=== PATIENT | male | born 1990 | race American Indian/Alaskan Native ===

== ENCOUNTER 2020-08-07 20:06 | Emergency (ER) | payer SELFPAY ==
--- NOTE | 2020-08-07 23:06 | Emergency Department Report ---
HPI - General Chief Complaint: Extremity Injury, Lower Time Seen by Provider: 08/07/20 22:49 - HPI HPI: Room 22 The patient is a 30-year-old male present with a chief complaint of right lower extremity pain. The patient states approximately mid June he was walking and fell striking his right knee. Patient states he had pain but did not immediately go to the hospital. Patient states he tried to elevated and ice his knee but he realized it did not help. The patient states he went to [facility] emergency department 07/14/2020 and had an x-ray performed which was negative. The patient states he continue to use a knee brace and attempted to rest and stay off of his leg or use crutches when necessary. The patient states for the past week he has had a dull pain in the entire right lower extremity but today after coming back home he felt as though his entire leg was on fire. Patient denies any direct trauma. The patient states he drove himself to the emergency department and he will hold off on pain medication at this time ED Past Medical Hx - Past Medical History Previous Medical History?: No - Surgical History Past Surgical History?: Yes Additional Surgical History: Benign testicular mass removal - Family History Family history: no significant - Social History Smoking Status: Current Some Day Smoker (Vape) Substance Use Type: None (Denies illicit drug use), Alcohol (Occasional) - Medications Home Medications: Home Medications Medication Instructions Recorded Confirmed Last Taken Type Cyclobenzaprine [Flexeril] 10 mg PO TID PRN #14 tablet 08/08/20 Unknown Rx HYDROcodone/APAP 5-325 [[place] 1 - 2 each PO Q6HR PRN #14 tablet 08/08/20 Unknown Rx 5/325] Ibuprofen [Motrin 800 MG tab] 800 mg PO Q8HR PRN #20 tablet 08/08/20 Unknown Rx ED Review of Systems ROS: Stated complaint: (R) KNEE PAIN/INJURY Other details as noted in HPI Constitutional: no symptoms reported Respiratory: no symptoms reported Endocrine: no symptoms reported Musculoskeletal: arthralgia, myalgia Physical Exam - Physical Exam Vital Signs: Vital Signs 08/07/20 20:35 Temperature 98.6 F Pulse Rate 82 Respiratory 18 Rate Blood Pressure 144/87 O2 Sat by Pulse 99 Oximetry Physical Exam: GENERAL: The patient is well-developed well-nourished male lying on stretcher not appearing to be in acute distress. [] HEENT: Normocephalic. Atraumatic. Extraocular motions are intact. Patient has moist mucous membranes. NECK: Supple. Trachea midline CHEST/LUNGS: There is no respiratory distress noted. HEART/CARDIOVASCULAR: Regular. There is no tachycardia. 2+ right DP SKIN: There is no rash. There is no edema. There is no diaphoresis. NEURO: The patient is awake, alert, and oriented. The patient is cooperative. The patient has no focal neurologic deficits. The patient has normal speech MUSCULOSKELETAL: There is tenderness to palpation in the right popliteal fossa. No cords felt. There is no evidence of acute injury. ED Course Vital Signs 08/07/20 20:35 Temperature 98.6 F Pulse Rate 82 Respiratory 18 Rate Blood Pressure 144/87 O2 Sat by Pulse 99 Oximetry ED Medical Decision Making - Radiology Data Radiology results: report reviewed (Right lower extremity Doppler), image reviewed (Right lower extremity Doppler) [facility] [address] [place] [address] Vascular Lab Report Signed Patient: KP GRIFFITH MR# : [id number] : 1990 Acct:[id number] Age/Sex: 30 / M ADM Date: 08/07/20 Loc: ED Attending Dr: Ordering Physician: SHERRILL IVEY MD Date of Service: 08/07/20 Procedure(s): VL venous duplex LE RT Accession Number(s): [id number] cc: SHERRILL IVEY MD DUPLEX DOPPLER LOWER EXTREMITY VEINS, RIGHT INDICATION / CLINICAL INFORMATION: Pain, swelling. TECHNIQUE: Duplex doppler imaging was performed through the veins of the right lower extremity using venous compression and other maneuvers. COMPARISON: None available. FINDINGS: RIGHT COMMON FEMORAL VEIN: Negative. RIGHT FEMORAL VEIN: Negative. RIGHT POPLITEAL VEIN: Negative. RIGHT CALF VEINS: Negative. ADDITIONAL FINDINGS: None. IMPRESSION: 1. No sonographic evidence for DVT in the right lower extremity. Signer Name: Santosh Apodaca MD Signed: 08/08/2020 12:23 AM Workstation Name: [id number] Transcribed By: TL Dictated By: Santosh Apodaca MD Electronically Authenticated By: Santosh Apodaca MD Signed Date/Time: 08/08/2022 DD/ TD/TT: - Differential Diagnosis Internal derangement of the knee, DVT Critical care attestation.: If time is entered above; I have spent that time in minutes in the direct care of this critically ill patient, excluding procedure time. ED Disposition Clinical Impression: Internal derangement of left knee Disposition: - TO HOME OR SELFCARE Is pt being admited?: No Does the pt Need Aspirin: No Condition: Stable Instructions: Anterior Cruciate Ligament Injury (ED), Posterior Cruciate Ligament Injury (ED), Knee Sprain (ED) Additional Instructions: Return to the emergency department should you develop worsening symptoms, inability to tolerate food or liquids, high fever or any other concerns Prescriptions: Cyclobenzaprine [Flexeril] 10 mg PO TID PRN #14 tablet PRN Reason: Muscle Spasm Ibuprofen [Motrin 800 MG tab] 800 mg PO Q8HR PRN #20 tablet PRN Reason: Pain, Moderate (4-6) HYDROcodone/APAP 5-325 [[place] 5/325] 1 - 2 each PO Q6HR PRN #14 tablet PRN Reason: Pain Referrals: BING LOU MD [Staff Physician] - 3-5 Days (Dr. Lou is an orthopedic surgeon. Please follow-up with him for further evaluation) Time of Disposition: 00:48
[2020-08-08] MEDS ORDERED: KETOROLAC 60 MG/2 ML INJ IM ONE (00:09)
[2020-08-08] MEDS ORDERED: KETOROLAC 60 MG/2 ML INJ ONE (00:11)
--- NOTE | 2020-08-08 00:27 | Vascular Lab Report ---
DUPLEX DOPPLER LOWER EXTREMITY VEINS, RIGHT INDICATION / CLINICAL INFORMATION: Pain, swelling. TECHNIQUE: Duplex doppler imaging was performed through the veins of the right lower extremity using venous comp ression and other maneuvers. COMPARISON: None available. FINDINGS: RIGHT COMMON FEMORAL VEIN: Negative. RIGHT FEMORAL VEIN: Negative. RIGHT POPLITEAL VEIN: Negative. RIGHT CALF VEINS: Negative. ADDITIONAL FINDINGS: None. IMPRESSION: 1. No sonographic evidence for DVT in the right lower extremity. Signer Name: Santosh Apodaca MD Signed: 08/08/2020 12:23 AM Workstation Name: [id number]
[2020-08-08 01:10] VITALS: BP 119/75
== END 2020-08-08 01:45 | disposition home or self-care (01) ==
LOC: ED 20:06
DX: M23.92 Unspecified internal derangement of left knee (principal); F17.200 Nicotine dependence, unspecified, uncomplicated; Z79.899 Other long term (current) drug therapy; Z98.890 Other specified postprocedural states
CPT/HCPCS: 93971; 96372; 99283; J1885

== ENCOUNTER 2021-09-08 09:27 | Day surgery (SDC) | payer OTHER ==
--- NOTE | 2021-09-06 10:59 | Anesthesia Consultation ---
Anesthesia Consult and Med Hx Date of service: 09/08/21 - Airway Anesthetic Teeth Evaluation: Good ROM Head & Neck: Adequate Mental/Hyoid Distance: Adequate Mallampati Class: Class III Intubation Access Assessment: Probably Good - Pre-Operative Health Status ASA Pre-Surgery Classification: ASA2 Proposed Anesthetic Plan: General Nerve Block: AC - Pulmonary Hx Smoking: Yes (STOPPED 2019 , NOW ONLY VAPS) Hx Sleep Apnea: No (TRINITY PRE SCREEN HIGH RISK) - Cardiovascular System Hx Hypertension: No Hx Heart Attack/AMI: No - Central Nervous System Hx Seizures: No Hx Back Pain: Yes Hx Psychiatric Problems: No - Gastrointestinal Hx Gastroesophageal Reflux Disease: No (Years ago; denies currently) - Endocrine Hx End Stage Renal Disease: No - Hematic Hx Anemia: No Hx Sickle Cell Disease: No - Other Systems Hx Alcohol Use: No Hx Substance Use: No Hx Cancer: No Hx Obesity: Yes (BMI 40.4 KG) - Additional Comments Anesthesia Medical History Comments: Increased platelets 442k. 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
[~2021-09-08 09:27] MED LIST: ACETAMINOPHEN 500 MG TAB PO NR; CELECOXIB 200 MG CAP PO NR; LACTATED RINGERS 1,000 ML IV SCH; MAGNESIUM OXIDE 400 MG TAB PO NR; MIDAZOLAM 2 MG/2 ML INJ IV NR; ceFAZolin/Water 2 GM/20 ML 2 GM/20 ML SYRINGE IV NR; fentaNYL 100 MCG/2 ML INJ IV NR
[2021-09-08] MEDS ORDERED: ONDANSETRON 4 MG/2 ML INJ IV PRN (11:04)
[2021-09-08] MEDS ORDERED: HYDROmorphone 1 MG/1 ML INJ IV PRN (11:04)
--- NOTE | 2021-09-08 11:04 | Anesthesia Day of Surgery ---
Anesthesia Day of Surgery - Day of Surgery Patient Examined: Yes Patient H&P Reviewed: Yes Patient is NPO: Yes
[2021-09-08] MEDS ORDERED: EPINEPHrine/PF 1 MG/1 ML INJ ONE (13:01)
[2021-09-08] MEDS ORDERED: BUPIVACAINE/PF (0.5%) 5 MG/1 ML 10 ML VIAL INFILTRATI ONE (13:02)
[2021-09-08] MEDS ORDERED: methylPREDNISolone ACETATE 40 MG/1 ML INJ ONE (13:02)
[2021-09-08] MEDS ORDERED: propofoL 200 MG/20 ML VIAL IV ONE (13:15)
[2021-09-08] MEDS ORDERED: fentaNYL 100 MCG/2 ML INJ ONE (13:15)
[2021-09-08] MEDS ORDERED: ROCURONIUM 50 MG/5 ML INJ IV ONE (13:15)
[2021-09-08] MEDS ORDERED: LIDOCAINE MPF (2%) 20 MG/1 ML VIAL 5 ML ONE (13:15)
[2021-09-08] MEDS ORDERED: KETAMINE/STERILE WATER 50 MG/ML SYRINGE ONE (13:15)
[2021-09-08] MEDS ORDERED: SODIUM CHLORIDE P/F VIAL 10 ML 10 ML ONE (13:33)
[2021-09-08] MEDS ORDERED: ONDANSETRON 4 MG/2 ML INJ ONE (14:01)
[2021-09-08] MEDS ORDERED: dexAMETHasone 20 MG/5 ML VIAL ONE (14:01)
[2021-09-08] MEDS ORDERED: EPINEPHrine 1 MG/10 ML SYRINGE IV ONE (14:35)
[2021-09-08] MEDS ORDERED: SODIUM CHLORIDE 0.9% IRR 1,500 ML BOTTLE IR ONE (14:36)
[2021-09-08] MEDS ORDERED: SODIUM CHLORIDE 0.9% P/F 10 ML VIAL INFILTRATI ONE (14:37)
[2021-09-08] MEDS ORDERED: HYDROmorphone 1 MG/1 ML INJ ONE (16:12)
[2021-09-08] MEDS ORDERED: LACTATED RINGERS 1,000 ML ONE (16:18)
[2021-09-08] MEDS ORDERED: NEOSTIGMINE 10MG/10 ML INJ MDV ONE (16:18)
[2021-09-08] MEDS ORDERED: GLYCOPYRROLATE 0.4 MG/2 ML INJ ONE ×2 (16:18)
[2021-09-08] MEDS ORDERED: KETOROLAC 30 MG/1 ML INJ ONE (16:19)
--- NOTE | 2021-09-08 16:35 | Procedure Note ---
Date of procedure: 09/08/21 Pre-op diagnosis: Right anterior cruciate ligament tear Post-op diagnosis: same Procedure: Right anterior cruciate ligament reconstruction using allograft tendon Procedure The patient was given a femoral nerve block for postop pain management and preoperative holding neck he was transferred to the operating room and placed on the OR table in the supine position following the induction and intubation by anesthesia the patient's right lower extremity was prepped and draped in the usual sterile manner. A timeout procedure was done to identify the patient and the correct operative site. The leg was exsanguinated followed by inflation of the pneumatic tourniquet to 300 mmHg next routine stab wounds were made about the patellar tendon and the arthroscope and inflow cannula were inserted into the knee joint this was followed by inspection which revealed a acute anterior cruciate ligament rupture from the femoral attachment next the anterior cruciate ligament stump was debrided using a combination of the arthroscopic shaver and the tissue ablator the anatomic footprint on the distal femur was seen and using a 10 mm tunnel guide the guidewire was inserted into the anatomic footprint and brought out laterally through the subcutaneous tissues and skin A passing suture was placed on the guidewire and brought out laterally following this attention was turned to the tibial attachment of the anterior cruciate ligament and using the anterior cruciate ligament guide with 55 degree angle, a second guidewire was inserted into the proximal tibia position was checked via arthroscope this was followed by our reaming a 10 mm diameter tunnel. The anterior tibial allograft was prepared on the table with whip stitching and tensioning. The anterior cruciate ligament graft was advanced through the tibial tunnel into the joint and through the femoral tunnel the button was secured to the lateral cortex of the femur this was followed by tensioning of the anterior cruciate ligament graft under direct visualization of the arthroscope the knee was then cycled using flexion and extension maneuvers this was followed by insertion of a 11 mm interference screw into the proximal tibia D and E was then taken to range of motion and was found to be stable to stress testing the pulling sutures were removed the excess allograft was cut at the margins of the proximal tibia this was followed by closure of the wound and application of our routine postop dressings by the patient tolerated the procedure there were no complications he was sent to postanesthesia recovery in a stable condition Anesthesia: MAC, regional Surgeon: BING ROA (Rosas Gomez, 1st assist) Estimated blood loss: minimal Pathology: none Condition: stable Disposition: PACU
[2021-09-08] MEDS: HYDROmorphone 1 MG/1 ML INJ IV PRN ×2 (16:50→17:00)
[2021-09-08] MEDS ORDERED: BUPIVACAINE/PF (0.25%) 2.5 MG/ML 30 ML VIAL INFILTRATI ONE (16:57)
[2021-09-08] MEDS ORDERED: dexAMETHasone 4 MG/ML VIAL ONE (16:57)
[2021-09-08] MEDS ORDERED: MIDAZOLAM 2 MG/2 ML INJ IV ONE (17:10)
--- NOTE | 2021-09-08 18:01 | Post Anesthesia Evaluation ---
- Post Anesthesia Evaluation Patient Participated: Yes Airway Patent: Yes Stable Respiratory Function: Yes Nausea/Vomiting: No Temp > 96.8F: Yes Pain Manageable: Yes Adequeate Hydration: Yes Anesthesia Complications: No Block Receding Appropriately: No (Done in PACU) Patient on Ventilator: No
[2021-09-08 21:27] VITALS: BP 120/64
== END 2021-09-08 20:00 | disposition home or self-care (01) ==
LOC: OR 09:27
PROVIDERS: ATTEND Orthopaedic Surgery
DX: S83.511A Sprain of anterior cruciate ligament of right knee, initial encounter (principal); Z20.822 Contact with and (suspected) exposure to COVID-19; G89.18 Other acute postprocedural pain; E66.9 Obesity, unspecified; Z68.41 Body mass index [BMI] 40.0-44.9, adult; Z87.891 Personal history of nicotine dependence; Z79.899 Other long term (current) drug therapy; Z98.890 Other specified postprocedural states; X58.XXXA Exposure to other specified factors, initial encounter; Y93.89 Activity, other specified; Y92.89 Other specified places as the place of occurrence of the external cause
CPT/HCPCS: 29888; 64447; C1713; C1762; J0171; J0690; J1100; J1170; J1885; J2250; J2405; J2704; J2710; J3010; J3490; J7120; U0003; V2790; J1030

== ENCOUNTER 2021-09-20 10:57 | Emergency (ER) | payer OTHER ==
--- NOTE | 2021-09-20 12:41 | Emergency Department Report ---
ED Chest Pain HPI - General Chief Complaint: Chest Pain Stated Complaint: ELEVATED BP Time Seen by Provider: 09/20/21 11:39 Source: patient Mode of arrival: Ambulatory Limitations: No Limitations - History of Present Illness Initial Comments: 31-year-old male presents to ED from orthopedic surgeon's office. Patient states he had ACL repair 2 weeks ago. Patient had elevated blood pressure this morning and was sent to the emergency room for further evaluation. Blood pressure normal at triage. Patient states he ran out of pain medication couple of days ago. He also reports that he has been having mild left chest pain that comes and goes for the last 2 days. Patient reports shortness of breath when he walks. States he has been having some chills and cold sweats. He does report continued pain in the right leg to his surgery. During his appointment earlier today, stitches were removed. He was told by physicians that the incisions look good. Patient currently on Eliquis postop. MD Complaint: chest pain -: days(s) (2) Onset: during rest Pain Location: left chest Pain Radiation: none Severity: mild Quality: sharp Consistency: intermittent Improves With: nothing Worsens With: nothing re: diaphoresis, dyspnea. denies: nausea, vomting Other Symptoms: denies: cough, fever Treatments Prior to Arrival: none - Related Data Previous Rx's Medication Instructions Recorded Last Taken Type Apixaban [Eliquis] 5 mg PO DAILY #21 tablet 09/08/21 Unknown Rx Oxycodone HCl/Acetaminophen 1 each PO Q6HR PRN #30 tablet 09/08/21 Unknown Rx [Percocet 10/325 mg] Allergies Allergy/AdvReac Type Severity Reaction Status Date / Time No Known Allergies Allergy Verified 09/20/21 11:20 Heart Score - HEART Score History: Slightly suspicious EKG: Non-specific Age: < 45 Risk factors: 1-2 risk factors Troponin: < normal limit HEART Score: 2 - EKG Read Time Time EKG Completed: 11:25 EKG Read Time: 11:29 ED Review of Systems ROS: Stated complaint: ELEVATED BP Other details as noted in HPI Comment: All other systems reviewed and negative Constitutional: chills. denies: fever Respiratory: shortness of breath. denies: cough Cardiovascular: chest pain Musculoskeletal: as per HPI ED Past Medical Hx - Past Medical History Hx Hypertension: No Hx Heart Attack/AMI: No Hx Congestive Heart Failure: No Hx Diabetes: No Hx GERD: Yes Hx Sickle Cell Disease: No Hx Seizures: No Hx Kidney Stones: No Hx Tuberculosis: No Hx HIV: No - Surgical History Additional Surgical History: Benign testicular mass removal - Social History Smoking Status: Former Smoker - Medications Home Medications: Home Medications Medication Instructions Recorded Confirmed Last Taken Type Apixaban [Eliquis] 5 mg PO DAILY #21 tablet 09/08/21 Unknown Rx Oxycodone HCl/Acetaminophen 1 each PO Q6HR PRN #30 tablet 09/08/21 Unknown Rx [Percocet 10/325 mg] ED Physical Exam - General Limitations: No Limitations General appearance: alert, in no apparent distress - Head Head exam: Present: atraumatic, normocephalic - Eye Eye exam: Present: normal appearance, EOMI - ENT ENT exam: Present: mucous membranes moist - Neck Neck exam: Present: normal inspection - Respiratory Respiratory exam: Present: normal lung sounds bilaterally. Absent: respiratory distress - Cardiovascular Cardiovascular Exam: Present: normal rhythm, tachycardia - GI/Abdominal GI/Abdominal exam: Present: soft. Absent: distended, tenderness - Extremities Exam Extremities exam: Present: other (Incision sites appear clean dry and intact; no significant swelling; no erythema present) - Neurological Exam Neurological exam: Present: alert, oriented X3 - Psychiatric Psychiatric exam: Present: normal affect, normal mood - Skin Skin exam: Present: warm, dry, intact, normal color ED Course Vital Signs 09/20/21 09/20/21 11:16 14:54 Temperature 98.2 F 98.2 F Pulse Rate 132 H 88 Respiratory 14 18 Rate Blood Pressure 133/93 125/84 [Right] O2 Sat by Pulse 98 98 Oximetry ED Medical Decision Making - Lab Data Result diagrams: 09/20/21 12:38 09/20/21 12:38 - EKG Data -: EKG Interpreted by Me Rate: tachycardia - EKG Data Interpretation: nonspecific ST-T wave ebony - Radiology Data Radiology results: report reviewed, image reviewed - Medical Decision Making 31-year-old male status post right knee surgery 2 weeks ago presents to ED with chest pain. Patient tachycardic at triage. Blood pressure was normal. D-dimer slightly elevated, so CTA was obtained which is negative for any acute findings including PE. Remainder of labs unremarkable. Patient was medicated for pain. Heart rate normalized. - Differential Diagnosis PE, pneumonia, ACS Critical care attestation.: If time is entered above; I have spent that time in minutes in the direct care of this critically ill patient, excluding procedure time. ED Disposition Clinical Impression: Chest pain Disposition: 01 HOME / SELF CARE / HOMELESS Is pt being admited?: No Condition: Stable Instructions: Nonspecific Chest Pain, Adult Referrals: ARYAN RUEDA MD [Primary Care Provider] - 3-5 Days PRIMARY CAREMD [Referring] - 3-5 Days Time of Disposition: 15:19
[2021-09-20 12:56] LABS: Basophils % (Auto) 0.8 % (0.0-1.8); Eosinophils # (Auto) 0.1 K/mm3 (0.0-0.4); Eosinophils % (Auto) 0.9 % (0.0-4.3); Hematocrit 46.6 % (35.5-45.6); Hemoglobin 15.2 gm/dl (11.8-15.2); Lymphocytes # (Auto) 2.4 K/mm3 (1.2-5.4); Mean Corpuscular HGB Conc 33 % (32-34); Mean Corpuscular Volume 86 fl (84-94); Monocytes # (Auto) 0.5 K/mm3 (0.0-0.8); Monocytes % (Auto) 7.8 % (0.0-7.3); Platelet Count 510 K/mm3 (140-440); Red Blood Count 5.39 M/mm3 (3.65-5.03)
[2021-09-20 13:02] LABS: INR 0.96 (0.87-1.13)
[2021-09-20 13:03] LABS: Partial Thromboplastin Time 28.4 Sec. (24.2-36.6)
[2021-09-20 13:11] LABS: BUN/Creatinine Ratio 13; Blood Urea Nitrogen 12 mg/dL (9-20); Calcium 9.4 mg/dL (8.4-10.2); Hemolysis Index 6
--- NOTE | 2021-09-20 14:20 | XRay Report ---
CHEST 1 VIEW 09/20/2021 1:14 PM INDICATION / CLINICAL INFORMATION: chest pain. COMPARISON: None available. FINDINGS: SUPPORT DEVICES: None. HEART / MEDIASTINUM: No significant abnormality. LUNGS / PLEURA: No significant pulmonary or pleural abnormality. No pneumothorax. ADDITIONAL FINDINGS: No significant additional findings. IMPRESSION: No acute abnormality. Signer Name: Miki Garcia MD Signed: 09/20/2021 2:16 PM Workstation Name: [id number]
[2021-09-20] MEDS ORDERED: oxyCODONE /ACETAMINOPHEN 5-325MG TAB PO ONE (14:41)
[2021-09-20 14:55] VITALS: BP 125/84
--- NOTE | 2021-09-20 14:59 | Cat Scan Report ---
CTA CHEST WITH CONTRAST INDICATION / CLINICAL INFORMATION: Chest pain. History of recent knee surgery. TECHNIQUE: Axial CT images were obtained through the chest after injection of 100 cc Omnipaque 350 IV contrast. 3 plane MIP and/or 3D reconstructions were produced. All CT scans at this location are per formed using CT dose reduction for ALARA by means of automated exposure control. COMPARISON: None available. FINDINGS: PULMONARY ARTERIES: There is good opacification of the pulmonary arterial system bilaterally without intraluminal filling defect to suggest acute PTE. THORACIC AORTA: No significant abnormality. HEART: No significant abnormality. CORONARY ARTERY CALCIFICATION: None. MEDIASTINUM / MONTSE: No significant abnormality. PLEURA: No pleural effusion. No pneumothorax. LUNGS: No acute air space or interstitial disease. ADDITIONAL FINDINGS: There is mild bilateral gynecomastia. UPPER ABDOMEN: No acute findings. SKELETAL STRUCTURES: No significant osseous abnormality. IMPRESSION: 1. No CT evidence for pulmonary embolism. 2. No acute findings. Signer Name: Carlos Hernandez MD Signed: 09/20/2021 2:54 PM Workstation Name: [id number]
--- NOTE | 2021-09-21 09:34 | Electrocardiograph Report ---
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
== END 2021-09-20 15:38 | disposition home or self-care (01) ==
LOC: ED 10:57
DX: R07.9 Chest pain, unspecified (principal); R03.0 Elevated blood-pressure reading, without diagnosis of hypertension
CPT/HCPCS: 36415; 71045; 71275; 80048; 84484; 85025; 85379; 85610; 85730; 93005; 99284; Q9967

== ENCOUNTER 2022-03-06 21:49 | Emergency (ER) | payer BC, OTHER ==
[2022-03-06 22:12] VITALS: BP 152/101
[2022-03-06 22:54] LABS: Basophils # (Auto) 0.1 K/mm3 (0.0-0.1); Basophils % (Auto) 0.7 % (0.0-1.8); Eosinophils # (Auto) 0.1 K/mm3 (0.0-0.4); Eosinophils % (Auto) 1.6 % (0.0-4.3); Hematocrit 40.8 % (35.5-45.6); Hemoglobin 14.2 gm/dl (11.8-15.2); Lymphocytes # (Auto) 3.8 K/mm3 (1.2-5.4); Lymphocytes % (Auto) 47.5 % (13.4-35.0); Mean Corpuscular HGB Conc 35 % (32-34); Mean Corpuscular Volume 86 fl (84-94); Monocytes # (Auto) 0.7 K/mm3 (0.0-0.8); Monocytes % (Auto) 8.4 % (0.0-7.3); Platelet Count 449 K/mm3 (140-440); Red Blood Count 4.74 M/mm3 (3.65-5.03); Red Cell Distribution Width 14.1 % (13.2-15.2)
[2022-03-06 23:11] LABS: BUN/Creatinine Ratio 10; Blood Urea Nitrogen 8 mg/dL (9-20); Calcium 8.9 mg/dL (8.4-10.2); Hemolysis Index 3
[2022-03-07] MEDS ORDERED: IBUPROFEN 400 MG TAB PO ONE (02:35)
[2022-03-07] MEDS ORDERED: ACETAMINOPHEN 325 MG TAB PO ONE (02:35)
--- NOTE | 2022-03-07 02:36 | Emergency Department Report ---
ED General Adult HPI - General Chief complaint: Extremity Problem,Nontraumatic Stated complaint: Right leg is swollen Time Seen by Provider: 03/07/22 02:07 Source: patient, RN notes reviewed, old records reviewed Mode of arrival: Ambulatory Limitations: No Limitations - History of Present Illness Initial comments: This is a pleasant 31-year-old gentleman who presents to the ER with a few weeks of right lower extremity tightness, subjective numbness, and swelling. He had orthopedic surgery of his right knee at [facility] in [address] Lou, and also had surgery at [facility] last year. He also describes a sensation of anxiety nonspecific chest tightness and aching for the past few weeks. He denies recent surgery, immobilization, and hospitalization. Denies headache, neck pain, abdominal pain, vomiting, diaphoresis. He denies extremity weakness. -: days(s), week(s) Location: chest, right, lower extremity Quality: aching Consistency: intermittent Improves with: none Worsens with: none - Related Data Previous Rx's Medication Instructions Recorded Last Taken Type Apixaban [Eliquis] 5 mg PO DAILY #21 tablet 09/08/21 Unknown Rx Oxycodone HCl/Acetaminophen 1 each PO Q6HR PRN #30 tablet 09/08/21 Unknown Rx [Percocet 10/325 mg] Allergies Allergy/AdvReac Type Severity Reaction Status Date / Time No Known Allergies Allergy Verified 09/20/21 11:20 ED Review of Systems ROS: Stated complaint: POSSIBLE BLOOD CLOT/LEG SWOLLEN Other details as noted in HPI Constitutional: denies: fever Eyes: denies: vision change ENT: denies: epistaxis Respiratory: denies: wheezing Cardiovascular: as per HPI, chest pain (Chest tightness) Gastrointestinal: denies: nausea, vomiting, hematemesis, melena, hematochezia Musculoskeletal: myalgia Neurological: denies: weakness, paresthesias ED Past Medical Hx - Past Medical History Previous Medical History?: Yes Hx Hypertension: No Hx Heart Attack/AMI: No Hx Congestive Heart Failure: No Hx Diabetes: No Hx GERD: Yes Hx Sickle Cell Disease: No Hx Seizures: No Hx Kidney Stones: No Hx Tuberculosis: No Hx HIV: No Additional medical history: Blood clot to RT arm - Surgical History Past Surgical History?: Yes Additional Surgical History: Benign testicular mass removal. Miniscus sx in April 2022. ACL reconstruction 08/2022 - Social History Smoking Status: Former Smoker - Medications Home Medications: Home Medications Medication Instructions Recorded Confirmed Last Taken Type Apixaban [Eliquis] 5 mg PO DAILY #21 tablet 09/08/21 Unknown Rx Oxycodone HCl/Acetaminophen 1 each PO Q6HR PRN #30 tablet 09/08/21 Unknown Rx [Percocet 10/325 mg] ED Physical Exam - General Limitations: No Limitations General appearance: alert, in no apparent distress - Head Head exam: Present: atraumatic, normocephalic - Eye Eye exam: Present: normal appearance, EOMI. Absent: nystagmus - ENT ENT exam: Present: normal exam, normal orophraynx, mucous membranes moist, normal external ear exam - Neck Neck exam: Present: normal inspection, full ROM. Absent: tenderness, meningismus - Respiratory Respiratory exam: Present: normal lung sounds bilaterally. Absent: respiratory distress, wheezes, rales, rhonchi, stridor, decreased breath sounds - Cardiovascular Cardiovascular Exam: Present: regular rate, normal rhythm, normal heart sounds. Absent: bradycardia, tachycardia, irregular rhythm, systolic murmur, diastolic murmur, rubs, gallop - GI/Abdominal GI/Abdominal exam: Present: soft. Absent: distended, tenderness, guarding, rebound, rigid, pulsatile mass - Rectal Rectal exam: Present: deferred - Extremities Exam Extremities exam: Present: normal inspection, full ROM, pedal edema (Right lower extremity), other (2+ pulses noted in the bilateral upper extremities. There is no long bony tenderness. The muscular compartments are soft. The pelvis is stable. The right lower extremity is slightly more swollen when compared to left lower extremity). Absent: calf tenderness - Back Exam Back exam: Present: normal inspection. Absent: tenderness, CVA tenderness (R), CVA tenderness (L), paraspinal tenderness, vertebral tenderness - Neurological Exam Neurological exam: Present: alert, oriented X3, normal gait, other (No facial droop. Tongue midline. Extraocular movements intact bilaterally. Facial sensation intact to light touch in V1, V2, V3 distribution bilaterally. 5 and a 5 strength in 4 extremities. Sensation intact to light touch in 4 extremities.). Absent: motor sensory deficit - Psychiatric Psychiatric exam: Present: anxious - Skin Skin exam: Present: warm, dry, intact, normal color. Absent: rash ED Course Vital Signs 03/06/22 22:08 Temperature 98.4 F Pulse Rate 80 Respiratory 16 Rate Blood Pressure 152/101 [Right] O2 Sat by Pulse 99 Oximetry - Reevaluation(s) Reevaluation #1: 03/07/22 03:39 On my examination, sensation is intact to light touch in the bilateral upper and lower extremities, but no dermatomal deficiencies of distribution. He has appropriate reflexes in the bilateral upper and lower extremities ED Medical Decision Making - Lab Data Result diagrams: 03/06/22 22:43 03/06/22 22:43 Vital Signs 03/06/22 22:08 Temperature 98.4 F Pulse Rate 80 Respiratory 16 Rate Blood Pressure 152/101 [Right] O2 Sat by Pulse 99 Oximetry Lab Results 03/06/22 03/06/22 03/07/22 Range/Units 22:43 22:43 02:54 WBC 8.0 (4.5-11.0) K/mm3 RBC 4.74 (3.65-5.03) M/mm3 Hgb 14.2 (11.8-15.2) gm/dl Hct 40.8 (35.5-45.6) % MCV 86 (84-94) fl MCH 30 (28-32) pg MCHC 35 H (32-34) % RDW 14.1 (13.2-15.2) % Plt Count 449 H (140-440) K/mm3 Lymph % (Auto) 47.5 H (13.4-35.0) % Smith % (Auto) 8.4 H (0.0-7.3) % Eos % (Auto) 1.6 (0.0-4.3) % Baso % (Auto) 0.7 (0.0-1.8) % Lymph # (Auto) 3.8 (1.2-5.4) K/mm3 Smith # (Auto) 0.7 (0.0-0.8) K/mm3 Eos # (Auto) 0.1 (0.0-0.4) K/mm3 Baso # (Auto) 0.1 (0.0-0.1) K/mm3 Seg Neutrophils % 41.8 (40.0-70.0) % Seg Neutrophils # 3.3 (1.8-7.7) K/mm3 Sodium 141 (137-145) mmol/L Potassium 4.6 (3.6-5.0) mmol/L Chloride 103.9 (98-107) mmol/L Carbon Dioxide 28 (22-30) mmol/L Anion Gap 14 mmol/L BUN 8 L (9-20) mg/dL Creatinine 0.8 (0.8-1.3) mg/dL Estimated GFR > 60 ml/min BUN/Creatinine Ratio 10 % Glucose 106 H (75-100) mg/dL Calcium 8.9 (8.4-10.2) mg/dL Troponin T < 0.010 (0.00-0.029) ng/mL - EKG Data -: EKG Interpreted by [place] EKG shows normal: sinus rhythm Rate: normal - EKG Data 03/07/22 03:38 The EKG is interpreted at 02: 43 Sinus rhythm, 66 bpm. Normal axis, normal intervals, normal P wave axis. Low voltage in the inferior leads. Abnormal EKG. Not a STEMI. Appears unchanged when compared to her prior EKG from September 2021 - Radiology Data Radiology results: pending, report reviewed, image reviewed CHEST 1 VIEW INDICATION / CLINICAL INFORMATION: CHEST TIGHTNESS. COMPARISON: Chest x-ray 09/20/2021 FINDINGS: SUPPORT DEVICES: None. HEART / MEDIASTINUM: No significant abnormality. LUNGS / PLEURA: No significant pulmonary or pleural abnormality. BONES: No significant osseous abnormality. ADDITIONAL FINDINGS: No significant additional findings. IMPRESSION: 1. No active cardiopulmonary disease. Signer Name: Bandar Drummond II, MD Signed: 03/07/2022 2:14 AM Workstation Name: [id number] DUPLEX DOPPLER LOWER EXTREMITY VEINS, RIGHT INDICATION / CLINICAL INFORMATION: rle swelling. TECHNIQUE: Duplex doppler imaging was performed through the veins of the right lower extremity using venous compression and other maneuvers. COMPARISON: None available. FINDINGS: RIGHT COMMON FEMORAL VEIN: Negative. RIGHT FEMORAL VEIN: Negative. RIGHT POPLITEAL VEIN: Negative. RIGHT CALF VEINS: Negative. ADDITIONAL FINDINGS: None. IMPRESSION: 1. No sonographic evidence for DVT in the right lower extremity. Signer Name: Bandar Drummond II, MD Signed: 03/07/2022 2:22 AM Workstation Name: [id number] CTA CHEST WITH CONTRAST INDICATION / CLINICAL INFORMATION: Chest pain. History of recent knee surgery. TECHNIQUE: Axial CT images were obtained through the chest after injection of 100 cc Omnipaque 350 IV contrast. 3 plane MIP and/or 3D reconstructions were produced. All CT scans at this location are performed using CT dose reduction for ALARA by means of automated exposure control. COMPARISON: None available. FINDINGS: PULMONARY ARTERIES: There is good opacification of the pulmonary arterial system bilaterally without intraluminal filling defect to suggest acute PTE. THORACIC AORTA: No significant abnormality. HEART: No significant abnormality. CORONARY ARTERY CALCIFICATION: None. M EDIASTINUM / MONTSE: No significant abnormality. PLEURA: No pleural effusion. No pneumothorax. LUNGS: No acute air space or interstitial disease. ADDITIONAL FINDINGS: There is mild bilateral gynecomastia. UPPER ABDOMEN: No acute findings. SKELETAL STRUCTURES: No significant osseous abnormality. IMPRESSION: 1. No CT evidence for pulmonary embolism. 2. No acute findings. Signer Name: Carlos Hernandez MD Signed: 09/20/2021 1:54 PM Workstation Name: [id number] - Medical Decision Making Differential diagnosis, including but not limited to: Dependent edema, DVT, anxiety, Assessment and plan: 31-year-old gentleman, who was afebrile, with reassuring vital signs, who is not currently tachycardic, tachypneic or hypoxic, who denies recent DVT/PE risk factors, who is low risk by Wells criteria, PERC negative, found to have no evidence of DVT on his right lower extremity, EKG unchanged from prior, troponin negative x1 in the context of weeks of atypical chest symptoms, low risk for major adverse cardiac event as per heart score. Laboratory studies diagnostics are unremarkable. Rest, ice, compression, elevation, Tylenol, Motrin, compression stockings, outpatient follow-up. All questions answered. Return precautions reviewed Critical care attestation.: If time is entered above; I have spent that time in minutes in the direct care of this critically ill patient, excluding procedure time. ED Disposition Clinical Impression: Nonspecific chest pain, Right leg swelling Disposition: 01 HOME / SELF CARE / HOMELESS Is pt being admited?: No Does the pt Need Aspirin: No Condition: Good Instructions: Nonspecific Chest Pain, Adult Additional Instructions: Patient may take [id number] Tylenol, alternating with [id number] ibuprofen as needed for physical pain. Patient may alternate ice packs and heat packs as needed for physical pain. Patient may purchase [id number] compression stockings, for right lower extremity swelling. Recommend follow-up with her primary care doctor within the next week. Please return to the emergency room right away with new pain, worsened pain, migration of pain, projectile vomiting, change in mental status, confusion, inability tolerate liquid feeds, new, worsened or different symptoms not present on the initial emergency room evaluation Participate in physical activities as tolerated. Referrals: CUONG FERNANDEZ MD [Staff Physician] - 7-10 days Forms: Work/School Release Form(ED) Heart Score - HEART Score History: Slightly suspicious EKG: Normal Age: < 45 Risk factors: No known risk factors Troponin: < normal limit HEART Score: 0 - EKG Read Time Time EKG Completed: 02:43 EKG Read Time: 02:43 - Critical Actions Critical Actions: 0-3 pts:0.9-1.7%risk of adverse cardiac event.Candidate for discharge
--- NOTE | 2022-03-07 03:18 | XRay Report ---
CHEST 1 VIEW INDICATION / CLINICAL INFORMATION: CHEST TIGHTNESS. COMPARISON: Chest x-ray 09/20/2021 FINDINGS: SUPPORT DEVICES: None. HEART / MEDIASTINUM: No significant abnormality. LUNGS / PLEURA: No significant pulmonary or pleural abnormality. BONES: No significant osseous abnormality. ADDITIONAL FINDINGS: No significant additional findings. IMPRESSION: 1. No active cardiopulmonary disease. Signer Name: Bandar Drummond II, MD Signed: 03/07/2022 3:14 AM Workstation Name: [id number]
--- NOTE | 2022-03-07 03:26 | Vascular Lab Report ---
DUPLEX DOPPLER LOWER EXTREMITY VEINS, RIGHT INDICATION / CLINICAL INFORMATION: rle swelling. TECHNIQUE: Duplex doppler imaging was performed through the veins of the right lower extremity using venous compression and other maneuvers. COMPARISON: None available. FINDINGS: RIGHT COMMON FEMORAL VEIN: Negative. RIGHT FEMORAL VEIN: Negative. RIGHT POPLITEAL VEIN: Negative. RIGHT CALF VEINS: Negative. ADDITIONAL FINDINGS: None. IMPRESSION: 1. No sonographic evidence for DVT in the right lower extremity. Signer Name: Bandar Drummond II, MD Signed: 03/07/2022 3:22 AM Workstation Name: [email or web address]
--- NOTE | 2022-03-07 11:35 | Electrocardiograph Report ---
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
== END 2022-03-07 04:01 | disposition home or self-care (01) ==
LOC: ED 21:49
DX: R07.9 Chest pain, unspecified (principal); R22.41 Localized swelling, mass and lump, right lower limb; Z87.891 Personal history of nicotine dependence
CPT/HCPCS: 36415; 71045; 80048; 84484; 85025; 93005; 99284